=== PATIENT | male | born 1970 ===

== ENCOUNTER 2020-07-11 01:42 | Emergency (ER) | payer MEDICAID ==
[~2020-07-11] VITALS: Ht 175.3 cm; Wt 75.0 kg
[2020-07-11] MEDS ORDERED: ACETAMINOPHEN 325MG TABLET PO ONE (02:15)
[2020-07-11 02:20] VITALS: BP 140/77
[2020-07-11] MEDS ORDERED: ACET-2708 MT (03:10)
== END 2020-07-11 04:20 ==
LOC: ER 01:42
DX: R51.9 Headache, unspecified (principal); M54.2 Cervicalgia; Z53.29 Procedure and treatment not carried out because of patient's decision for other reasons
CPT/HCPCS: 99283